=== PATIENT | male | born 1975 ===

== ENCOUNTER 2020-06-09 18:15 | Inpatient (IN) | payer BC, OTHER ==
[~2020-06-09] VITALS: Ht 177.8 cm; Wt 97.7 kg
[2020-06-09 20:49] LABS: Basophils # (auto) 0 10 ^3/uL (0-0.2); Basophils % (auto) 0.7 % (0.0-2.0); Eosinophils # (auto) 0.2 10 ^3/uL (0-0.8); Eosinophils % (auto) 3.3 % (0.0-7.0); Hematocrit 46.3 % (41.0-53.0); Hemoglobin 15.6 g/dL (13.5-17.5); Lymphocytes # (auto) 2.8 10 ^3/uL (0.4-5.4); Lymphocytes % (auto) 41.3 % (10.0-50.0); Mean Corpuscular Hemoglobin 29.6 pg (28.0-32.0); Mean Corpuscular Hgb Conc. 33.8 g/dL (32.0-36.0); Mean Corpuscular Volume 87.7 fL (80.0-100.0); Monocytes % (auto) 14.8 % (0.0-12.0); Neutrophils # (auto) 2.7 10 ^3/uL (1.6-8.6); Neutrophils % (auto) 39.9 % (37.0-80.0); Nucleated Red Blood Cells % 0.1 %; Red Blood Cells 5.28 10^6/uL (4.5-5.90); Red Cell Distribution Width 13.4 % (11.8-14.3); White Blood Cell 6.8 10^3/uL (4.4-10.8)
[2020-06-09 21:11] LABS: Potassium 4.5 mmol/L (3.5-5.1)
[2020-06-09 21:12] LABS: Calcium 9.2 mg/dL (8.5-10.1)
[2020-06-09 21:15] LABS: BUN/Creatinine Ratio 15.1; Bilirubin, Total 0.4 mg/dL (0.2-1.0); Total Protein 9.6 g/dL (6.4-8.2)
[2020-06-09 23:28] LABS: Urine WBC None Seen /hpf (0 - 3)
[2020-06-09 23:43] LABS: Urine Bacteria NONE SEEN /hpf (None Seen); Urine Blood Negative /uL (Negative); Urine Specific Gravity 1.008 (1.001-1.035)
[2020-06-10] MEDS ORDERED: TEMAZEPAM 15 MG CAP PO PRN (00:45)
[2020-06-10] MEDS ORDERED: MORPHINE SULFATE 4 MG/ML SYR/VIAL IV PRN (00:45)
[2020-06-10] MEDS ORDERED: ACETAMINOPHEN 325 MG TAB PO PRN (00:45)
[2020-06-10] MEDS ORDERED: ONDANSETRON HCL 4 MG/2 ML VIAL IV PRN (00:45)
[2020-06-10] MEDS ORDERED: HYDROcodone-ACET 5/325MG TAB PO PRN (00:45)
[2020-06-10] MEDS ORDERED: LOPERAMIDE HCL 2 MG CAP PO PRN (00:45)
[2020-06-10] MEDS ORDERED: SODIUM CHLORIDE 0.9% 500 ML IV ONE (00:45)
[2020-06-10 03:13] VITALS: BP 118/71
[2020-06-10 05:00] VITALS: BP 122/66
[2020-06-10] MEDS: metroNIDAZOLE 500MG/100ML 100 ML IV SCH ×3 (06:25→21:04)
[2020-06-10 09:00] VITALS: BP 114/70
[2020-06-10] MEDS: PANTOPRAZOLE 40 MG/10 ML VIAL INJ IV SCH (09:32)
[2020-06-10] MEDS ORDERED: PNEUMOCOCCAL VACC POLYS 25 MCG/0.5 ML VIAL SUBCUT SCH (12:00)
[2020-06-10 13:00] VITALS: BP 119/73
[2020-06-10 17:00] VITALS: BP 145/76
[2020-06-10] MEDS ORDERED: GOLYTELY 4L KIT PO ONE (17:45)
[2020-06-10] MEDS ORDERED: MORPHINE SULFATE INJECTION 2 MG/ML SYRG IV PRN (18:15)
[2020-06-10 22:00] VITALS: BP 110/79
[2020-06-11 05:00] VITALS: BP 114/75
[2020-06-11] MEDS ORDERED: MAGNESIUM CITRATE SOLUTION 300 ML BTL PO ONE (06:00)
[2020-06-11] MEDS ORDERED: GOLYTELY 4L KIT PO ONE (06:00)
[2020-06-11 06:09] LABS: INR 1.08 (0.9-1.15); Partial Thromboplastin Time 29.4 sec (23.0-31.2)
[2020-06-11] MEDS: metroNIDAZOLE 500MG/100ML 100 ML IV SCH (06:13)
[2020-06-11 06:26] LABS: Potassium 4.2 mmol/L (3.5-5.1)
[2020-06-11 06:30] LABS: Hematocrit 46.7 % (41.0-53.0); Hemoglobin 15.6 g/dL (13.5-17.5); Mean Corpuscular Hemoglobin 29.7 pg (28.0-32.0); Mean Corpuscular Hgb Conc. 33.5 g/dL (32.0-36.0); Mean Corpuscular Volume 88.6 fL (80.0-100.0); Red Blood Cells 5.27 10^6/uL (4.5-5.90); Red Cell Distribution Width 13.7 % (11.8-14.3)
[2020-06-11 06:40] LABS: Basophils % (manual) 0 (0.0-2.0); Blast Cells 0; Metamyelocytes % 0; Myelocytes % 0; Promyelocytes % 0
[2020-06-11 06:43] LABS: Albumin 3.3 g/dL (3.4-5.0); BUN/Creatinine Ratio 10.5; Bilirubin, Direct 0.1 mg/dL (0-0.2); Bilirubin, Total 0.6 mg/dL (0.2-1.0); Total Protein 8.7 g/dL (6.4-8.2)
[2020-06-11 07:17] LABS: Band Neutrophils % (manual) 7; Eosinophils % (manual) 7 (0-7); Lymphocytes % (manual) 44 (10.0-50.0); Monocytes % (manual) 15 (0-12); Reactive Lymphocytes 2
[2020-06-11 09:00] VITALS: BP_SYST 115; BP_SYST 119; BP_DIAS 61; BP_DIAS 74
[2020-06-11] MEDS: PANTOPRAZOLE 40 MG/10 ML VIAL INJ IV SCH (09:12)
[2020-06-11] MEDS ORDERED: SODIUM CHLORIDE LOCK 10 ML ONE (11:31)
[2020-06-11 13:00] VITALS: BP 119/78
[2020-06-11] MEDS: MIDAZOLAM HCL 5 MG/ML-1ML VIAL ONE ×2 (13:13→13:17)
[2020-06-11] MEDS: diphenhdrAMINE HCL 50 MG/1 ML VL ONE ×2 (13:13→13:17)
[2020-06-11] MEDS ORDERED: methylPREDNISolone SOD SUCC 40 MG/ML VL IV SCH (14:00)
[2020-06-11] MEDS ORDERED: MESALAMINE 400mg Delayed Release Cap PO SCH (14:00)
[2020-06-11 14:28] VITALS: BP 114/60
[2020-06-11] MEDS ORDERED: MESA400C PO (14:34)
[2020-06-11] MEDS ORDERED: METH4PAK PO (14:36)
[2020-06-11] MEDS ORDERED: methylPREDNISolone SOD SUCC 40 MG/ML VL IV ONE (14:45)
[2020-06-11 17:00] VITALS: BP 120/75
[2020-06-12] MEDS ORDERED: PANTOPRAZOLE 40 MG TAB PO SCH (10:00)
== END 2020-06-11 19:20 | disposition home or self-care (01) | DRG 392 ==
LOC: ER 18:15 → OVERFLOW 06-10 00:42 → WEST WING 06-10 02:36
PROVIDERS: ADMIT Nurse Practitioner; ATTEND Internal Medicine
PROC: 0DBB8ZX Excision of Ileum, Via Natural or Artificial Opening Endoscopic, Diagnostic (ICD-10-PCS; 2020-06-11)
PROC: 0DBC8ZX Excision of Ileocecal Valve, Via Natural or Artificial Opening Endoscopic, Diagnostic (ICD-10-PCS; principal; 2020-06-11 13:06)
DX: K52.9 Noninfective gastroenteritis and colitis, unspecified (principal); D84.9 Immunodeficiency, unspecified; E66.9 Obesity, unspecified; Z20.822 Contact with and (suspected) exposure to COVID-19; R74.8 Abnormal levels of other serum enzymes; K76.0 Fatty (change of) liver, not elsewhere classified; R53.83 Other fatigue; Z68.30 Body mass index [BMI] 30.0-30.9, adult; Z82.3 Family history of stroke; Z82.49 Family history of ischemic heart disease and other diseases of the circulatory system; Z83.3 Family history of diabetes mellitus
CPT/HCPCS: 36415; 45380; 74176; 80053; 80061; 80076; 81001; 83690; 84443; 85007; 85025; 85027; 85610; 85730; 86850; 86900; 86901; 87045; 87426; 87427; 87493; 93005; 96361; 96374; C9113; G0378; J2250; J3490

== ENCOUNTER → 2022-08-16 | Outpatient (CLI) | payer BC ==
[~2022-08-16] MED LIST: MESA400C PO; METH4PAK PO
[2022-08-16 08:07] LABS: Basophils # (auto) 0 10 ^3/uL (0-0.2); Basophils % (auto) 0.9 % (0.0-2.0); Eosinophils # (auto) 0.3 10 ^3/uL (0-0.8); Eosinophils % (auto) 7.6 % (0.0-7.0); Hematocrit 42.4 % (41.0-53.0); Hemoglobin 14.7 g/dL (13.5-17.5); Lymphocytes % (auto) 44.2 % (10.0-50.0); Mean Corpuscular Hemoglobin 30.2 pg (28.0-32.0); Mean Corpuscular Hgb Conc. 34.6 g/dL (32.0-36.0); Mean Corpuscular Volume 87.3 fL (80.0-100.0); Monocytes # (auto) 0.7 10 ^3/uL (0-1.3); Monocytes % (auto) 15.3 % (0.0-12.0); Neutrophils # (auto) 1.5 10 ^3/uL (1.6-8.6); Nucleated Red Blood Cells % 0.1 %; Red Blood Cells 4.85 10^6/uL (4.5-5.90); Red Cell Distribution Width 13.4 % (11.8-14.3); White Blood Cell 4.5 10^3/uL (4.4-10.8)
[2022-08-16 08:27] LABS: Albumin 3.3 g/dL (3.4-5.0); BUN/Creatinine Ratio 15.3 (10.0-20.0); Calcium 8.6 mg/dL (8.5-10.1); Potassium 4.8 mmol/L (3.5-5.1)
[2022-08-16 08:36] LABS: Bilirubin, Total 0.4 mg/dL (0.2-1.0); Total Protein 9.6 g/dL (6.4-8.2)
== END | disposition home or self-care (01) ==
LOC: LAB 07:50
PROVIDERS: ATTEND Internal Medicine Gastroenterology
DX: K50.90 Crohn's disease, unspecified, without complications (principal)
CPT/HCPCS: 36415; 80053; 80061; 82378; 83036; 85025

== ENCOUNTER → 2023-04-18 | Outpatient (CLI) | payer BC ==
[2023-04-18 15:11] LABS: Basophils # (auto) 0 10 ^3/uL (0-0.2); Basophils % (auto) 0.5 % (0.0-2.0); Eosinophils # (auto) 0.1 10 ^3/uL (0-0.8); Eosinophils % (auto) 1.1 % (0.0-7.0); Hematocrit 37.6 % (41.0-53.0); Hemoglobin 12.9 g/dL (13.5-17.5); Lymphocytes # (auto) 1.2 10 ^3/uL (0.4-5.4); Lymphocytes % (auto) 19.8 % (10.0-50.0); Mean Corpuscular Hemoglobin 29.8 pg (28.0-32.0); Mean Corpuscular Hgb Conc. 34.4 g/dL (32.0-36.0); Mean Corpuscular Volume 86.5 fL (80.0-100.0); Monocytes # (auto) 0.8 10 ^3/uL (0-1.3); Monocytes % (auto) 13.5 % (0.0-12.0); Neutrophils # (auto) 3.9 10 ^3/uL (1.6-8.6); Neutrophils % (auto) 65.1 % (37.0-80.0); Nucleated Red Blood Cells % 0.1 %; Red Blood Cells 4.34 10^6/uL (4.5-5.90); Red Cell Distribution Width 13.2 % (11.8-14.3); White Blood Cell 5.9 10^3/uL (4.4-10.8)
[2023-04-18 15:25] LABS: Urine Bacteria NONE SEEN /hpf (None Seen); Urine Blood Negative /uL (Negative); Urine Clarity Clear (Clear); Urine Color Yellow (Yellow); Urine Protein, UAD 1+ (Negative); Urine Specific Gravity 1.019 (1.001-1.035); Urine WBC 2 /hpf (0 - 3)
[2023-04-18 15:39] LABS: Alanine Aminotransferase 40 U/L (7-40); Alkaline Phosphatase 72 U/L (46-116); Anion Gap 9 (5-15); Aspartate Aminotransferase 81 U/L (13-40); BUN/Creatinine Ratio 12.4 (10.0-20.0); Bilirubin, Total 0.8 mg/dL (0.2-1.0); Blood Urea Nitrogen 11 mg/dL (9-23); Calcium 9.2 mg/dL (8.5-10.1); Carbon Dioxide 22 mmol/L (20-30); Chloride 104 mmol/L (98-107); Cholesterol 93 mg/dL (< 200); Glucose 95 mg/dL (74-106); HDL Cholesterol 25 mg/dL (40-59); LDL Cholesterol 49 mg/dL (< 100); Potassium 4.2 mmol/L (3.5-5.1); Sodium 135 mmol/L (136-145); Triglycerides 113 mg/dL (< 150)
[2023-04-18 15:42] LABS: Free T4 (Free Thyroxine) 1.98 ng/dL (0.89-1.76)
[2023-04-18 15:43] LABS: Carcinoembryonic Antigen 3.48 ng/mL (<=5.0)
[2023-04-20 12:08] LABS: QuantiFERON-TB Gold Plus Negative (Negative)
== END | disposition home or self-care (01) ==
LOC: LAB 14:50
PROVIDERS: ATTEND Student in an Organized Health Care Education/Training Program
DX: R73.9 Hyperglycemia, unspecified (principal); R53.83 Other fatigue; R61 Generalized hyperhidrosis
CPT/HCPCS: 36415; 80053; 80061; 81001; 82378; 83036; 84439; 84443; 85025; 86701; 86703

== ENCOUNTER → 2023-04-28 | Outpatient (CLI) | payer BC ==
[2023-04-29 05:08] LABS: Basos 1 % (Not Estab.); Eos 3 % (Not Estab.); Eos (Absolute) 0.2 x10E3/uL (0.0-0.4); Hematocrit 35.8 % (37.5-51.0); Hemoglobin 11.8 g/dL (13.0-17.7); Lymphs 14 % (Not Estab.); Lymphs (Absolute) 0.8 x10E3/uL (0.7-3.1); MCH 28.9 pg (26.6-33.0); MCV 88 fL (79-97); Monocytes 8 % (Not Estab.); Monocytes (Absolute) 0.5 x10E3/uL (0.1-0.9); Neutrophils 73 % (Not Estab.); Neutrophils (Absolute) 4.4 x10E3/uL (1.4-7.0); Platelets 413 x10E3/uL (150-450); RBC 4.08 x10E6/uL (4.14-5.80); WBC 5.9 x10E3/uL (3.4-10.8)
[2023-04-29 11:07] LABS: % CD 8 Pos Lymph 78.9 % (12.0-35.5); Absolute CD 4 Helper 24 /uL (359-1519); CD4/CD8 Ratio 0.04 (0.92-3.72)
== END | disposition home or self-care (01) ==
LOC: LAB 10:10
PROVIDERS: ATTEND Student in an Organized Health Care Education/Training Program
DX: B20 Human immunodeficiency virus [HIV] disease (principal); R94.6 Abnormal results of thyroid function studies; R73.9 Hyperglycemia, unspecified
CPT/HCPCS: 36415; 84439; 84443; 86360; 86701; 86703